=== PATIENT | female | born 1965 | race Caucasian/White ===

== ENCOUNTER → 2023-09-25 15:04 | Outpatient (REF) | payer BC, SELFPAY | LOC: MRI 3T 15:04 | PROVIDERS: ATTENDING PHYSICIAN Student in an Organized Health Care Education/Training Program; FAMILY PHYSICIAN Internal Medicine | DX: M54.12 Radiculopathy, cervical region (principal) | CPT/HCPCS: 72141 ==

== ENCOUNTER → 2023-09-27 09:33 | Outpatient (REF) | payer BC, SELFPAY | LOC: HWWDC 09:33 | PROVIDERS: ATTENDING PHYSICIAN Obstetrics & Gynecology Gynecology; FAMILY PHYSICIAN Internal Medicine | DX: Z12.31 Encounter for screening mammogram for malignant neoplasm of breast (principal) | CPT/HCPCS: 77063; 77067 ==

== ENCOUNTER → 2023-10-06 06:59 | Outpatient (REF) | payer BC, SELFPAY | LOC: MRI 06:59 | PROVIDERS: ATTENDING PHYSICIAN Orthopaedic Surgery Sports Medicine; FAMILY PHYSICIAN Internal Medicine | DX: S46.011A Strain of muscle(s) and tendon(s) of the rotator cuff of right shoulder, initial encounter (principal) | CPT/HCPCS: 73221 ==

== ENCOUNTER → 2024-06-20 09:20 | Outpatient (REF) | payer BC, SELFPAY | LOC: HWRCS 09:20 | PROVIDERS: ATTENDING PHYSICIAN Internal Medicine Cardiovascular Disease; FAMILY PHYSICIAN Student in an Organized Health Care Education/Training Program | DX: R00.2 Palpitations (principal); I10 Essential (primary) hypertension | CPT/HCPCS: 93306 ==

== ENCOUNTER → 2024-10-03 07:11 | Outpatient (REF) | payer BC, SELFPAY ==
[2024-10-03 09:52] LABS: Blood Urea Nitrogen 14 mg/dl (7-17); Calcium 9.1 mg/dl (8.4-10.2); Carbon Dioxide 30 mmol/L (22-30); Chloride 106 mmol/L (98-107); Glucose 97 mg/dl (70-99); HDL Cholesterol 67 mg/dl; LDL Cholesterol, Calculated 51 mg/dl; Potassium 3.9 mmol/L (3.5-5.1); Sodium 140 mmol/L (135-145); Total Cholesterol 131 mg/dl (50-199); Triglyceride 68 mg/dl (10-149); Very Low Density Lipoprotein 13 mg/dl (0-30); eGFR > 60.00
[2024-10-03 10:43] LABS: TSH 0.21 uIU/ml (0.47-4.68)
== END ==
LOC: HWWDC 07:11
PROVIDERS: ATTENDING PHYSICIAN Obstetrics & Gynecology Gynecology; FAMILY PHYSICIAN Student in an Organized Health Care Education/Training Program; REFERRING PHYSICIAN Internal Medicine Cardiovascular Disease
DX: R00.2 Palpitations (principal); Z76.89 Persons encountering health services in other specified circumstances; I10 Essential (primary) hypertension; E78.2 Mixed hyperlipidemia; Z72.0 Tobacco use; E03.9 Hypothyroidism, unspecified; Z12.31 Encounter for screening mammogram for malignant neoplasm of breast
CPT/HCPCS: 36415; 77063; 77067; 80048; 80061; 84443

== ENCOUNTER → 2024-11-11 08:54 | Outpatient (REF) | payer BC, SELFPAY ==
[2024-11-11 11:45] LABS: Blood Urea Nitrogen 14 mg/dl (7-17); Calcium 9.7 mg/dl (8.4-10.2); Carbon Dioxide 30 mmol/L (22-30); Chloride 105 mmol/L (98-107); Glucose 93 mg/dl (70-99); HDL Cholesterol 77 mg/dl; LDL Cholesterol, Calculated 47 mg/dl; Potassium 4.4 mmol/L (3.5-5.1); Sodium 141 mmol/L (135-145); Total Cholesterol 140 mg/dl (50-199); Triglyceride 83 mg/dl (10-149); Very Low Density Lipoprotein 16 mg/dl (0-30); eGFR > 60.00
== END ==
LOC: HWLAB 08:54
PROVIDERS: ATTENDING PHYSICIAN Internal Medicine Cardiovascular Disease; FAMILY PHYSICIAN Student in an Organized Health Care Education/Training Program
DX: R00.2 Palpitations (principal); Z76.89 Persons encountering health services in other specified circumstances; I10 Essential (primary) hypertension; E78.2 Mixed hyperlipidemia; Z72.0 Tobacco use
CPT/HCPCS: 36415; 80048; 80061

== ENCOUNTER → 2025-01-30 13:30 | Outpatient (REF) | payer BC, SELFPAY ==
[2025-01-30 16:28] LABS: Free T3 3.21 pg/ml (2.77-5.27); Free T4 1.56 ng/dl (0.78-2.19)
[2025-01-30 16:41] LABS: TSH 1.08 uIU/ml (0.47-4.68)
== END ==
LOC: HWLAB 13:30
PROVIDERS: ATTENDING PHYSICIAN Student in an Organized Health Care Education/Training Program
DX: F33.0 Major depressive disorder, recurrent, mild (principal)
CPT/HCPCS: 36415; 84439; 84443; 84481

== ENCOUNTER → 2025-05-09 11:07 | Outpatient (REF) | payer BC, SELFPAY ==
[2025-05-09 16:02] LABS: Hematocrit 38.8 % (37.0-47.0); Hemoglobin 12.7 g/dL (12.0-16.0); Mean Corp Hgb Conc. 32.7 g/dL (33.0-37.0); Mean Corpuscular Volume 90.2 fL (81.0-99.0); Platelet Count 140 10^3/uL (130-400); Red Cell Dist. Width 13.2 % (11.5-14.5)
[2025-05-09 16:47] LABS: Absolute Neutrophils -Man Diff 2.7 10^3/uL (1.4-6.5); Normal RBC Morphology Yes; Platelets Checked Yes; Total Cells Counted 100
== END ==
LOC: HWLAB 11:07
PROVIDERS: ATTENDING PHYSICIAN Internal Medicine; FAMILY PHYSICIAN Student in an Organized Health Care Education/Training Program
DX: R09.89 Other specified symptoms and signs involving the circulatory and respiratory systems (principal)
CPT/HCPCS: 36415; 82785; 85025; 86003

== ENCOUNTER → 2025-05-20 08:02 | Outpatient (REF) | payer BC, SELFPAY | LOC: HWRAD 08:02 | PROVIDERS: ATTENDING PHYSICIAN Internal Medicine; FAMILY PHYSICIAN Student in an Organized Health Care Education/Training Program | DX: Z87.891 Personal history of nicotine dependence (principal) | CPT/HCPCS: 71271 ==

== ENCOUNTER → 2025-05-30 12:14 | Outpatient (REF) | payer BC, SELFPAY | LOC: DHSLP 12:14 | PROVIDERS: ATTENDING PHYSICIAN Internal Medicine; FAMILY PHYSICIAN Student in an Organized Health Care Education/Training Program | DX: G47.30 Sleep apnea, unspecified (principal); R06.83 Snoring | CPT/HCPCS: 95800 ==

== ENCOUNTER → 2025-06-10 14:00 | Outpatient (REF) | payer BC, SELFPAY | LOC: HWRAD 14:00 | PROVIDERS: ATTENDING PHYSICIAN Student in an Organized Health Care Education/Training Program; FAMILY PHYSICIAN Student in an Organized Health Care Education/Training Program | DX: R51.9 Headache, unspecified (principal) | CPT/HCPCS: 70486 ==